=== PATIENT | female | born 1955 | race Hispanic/Latino ===

== ENCOUNTER 2022-01-10 08:02 | Outpatient (CLI) | payer MEDICARE, OTHER | END 2022-01-10 08:03 | disposition home or self-care (01) | LOC: SCSMRI 08:02 | PROVIDERS: ATTEND Orthopaedic Surgery | DX: S76.011A Strain of muscle, fascia and tendon of right hip, initial encounter (principal); M87.9 Osteonecrosis, unspecified ==